=== PATIENT | male | born 1955 | race Caucasian/White ===

== ENCOUNTER 2017-06-08 18:59 | Emergency (ER) | payer OTHER ==
[~2017-06-08] VITALS: Ht 182.9 cm; Wt 82.0 kg
[2017-06-08 19:25] VITALS: BP 120/86; PULSE 80; RESP 16; O2SAT 96
[2017-06-08 21:40] LABS: ANION GAP 14 MEQ/L (5-15); AST (GOT) 63 U/L (15-37); BICARBONATE 21.4 MEQ/L (21.0-32.0); BLOOD UREA NITROGEN 14 MG/DL (7-18); CHLORIDE 106 MEQ/L (98-107); GLOMERULAR FILTRATION RATE 86 ML/MIN (>89); POTASSIUM 3.9 MEQ/L (3.5-5.1); SODIUM (NA) 141 MEQ/L (136-145)
[2017-06-08 21:46] LABS: ALKALINE PHOSPHATASE 67 U/L (45-117); ALT (GPT) 62 U/L (12-78); TOTAL BILIRUBIN ADULT 0.3 MG/DL (0.2-1.0)
[2017-06-08 21:51] LABS: ALCOHOL 304 MG/DL (0-5)
== END 2017-06-08 20:45 | disposition left against medical advice (07) ==
LOC: NEDAMB 18:59
DX: Z04.9 Encounter for examination and observation for unspecified reason (principal); F10.24 Alcohol dependence with alcohol-induced mood disorder
CPT/HCPCS: 80053; 80307; 99283

== ENCOUNTER 2017-06-08 23:04 | Emergency (ER) | payer OTHER ==
[~2017-06-08] VITALS: Ht 172.7 cm; Wt 75.0 kg
[2017-06-09 06:20] VITALS: BP 141/85; PULSE 72; RESP 17; O2SAT 96
--- NOTE | 2017-06-09 06:48 | PD ---
HPI Chief Complaint: Psychiatric Symptoms Time Seen by Provider: 06:07 Travel History International Travel<30 days: No Contact w/Intl Traveler<30days: No Traveled to known affect area: No History of Present Illness HPI 61-year-old white male presents to emergency department under a Hale act by PD. The patient had made suicidal statements. He has stated that he was going to take warm hot bath with a razor. Patient denies any true suicidal ideation. He states that he said this is use intoxicated. Now that he sobered up he recants this. He denies any homicidal ideation. He states that he suffered with alcohol abuse for many years as well as bipolar. He states that he had taken a cab from [place] where she lives in [facility]. He states that he hasn't driven since 2004. Patient denies any toxic ingestions. No medical complaints. PFSH Past Medical History Narrative Medical Alcoholism, bipolar Tetanus Vaccination: < 5 Years Past Surgical History Narrative Surgical Tonsils, septoplasty, right ankle surgery Social History Alcohol Use: Yes Tobacco Use: No Substance Use: No Allergies-Medications (Allergen,Severity, Reaction): Coded Allergies: No Known Allergies (Verified Allergy, Unknown, 06/08/17) Review of Systems Except as stated in HPI: all other systems reviewed are Neg Physical Exam Narrative GENERAL: Well-nourished, well-developed patient. SKIN: Warm and dry. HEAD: Normocephalic and atraumatic. EYES: No scleral icterus. No injection or drainage. ENT: No nasal drainage noted. Mucous membranes pink. Airway patent. NECK: Supple, trachea midline. Moves head freely without obvious discomfort. CARDIOVASCULAR: Regular rate and rhythm without murmurs, gallops, or rubs. RESPIRATORY: Breath sounds equal bilaterally. No accessory muscle use. GASTROINTESTINAL: Abdomen soft, non-tender, nondistended. EXTREMITIES: No cyanosis or edema. BACK: Nontender without obvious deformity. No CVA tenderness. NEURO: Patient is alert and oriented. no sensorimotor deficits. Nonfocal. Normal speech. PSYCH: No delusions. No auditory or visual hallucinations. Data Data Last Documented VS Vital Signs Date Time Temp Pulse Resp B/P (MAP) Pulse Ox O2 Delivery O2 Flow Rate FiO2 06/09/17 06:20 72 17 141/85 (103) 96 Orders Orders Psych Screen (06/09/17 04:52) Diet Regular Basic (06/09/17 Breakfast) Complete Blood Count With Diff (06/09/17 06:07) Comprehensive Metabolic Panel (06/09/17 06:07) Drug Screen, Random Urine (06/09/17 06:07) Alcohol (Ethanol) (06/09/17 06:07) Labs Laboratory Tests Test 06/09/17 06:26 [facility] Medical Decision Making Medical Screen Exam Complete: Yes Emergency Medical Condition: Yes Medical Record Reviewed: Yes Differential Diagnosis MDM: High Differential diagnoses: Schizophrenia, schizoaffective disorder, bipolar, anxiety, depression, adjustment reaction, mood disorder NOS, ODD, depressive disorder NOS, dementia, dementia with agitation, psychosis NOS, substance induced mood disorder, intermittent explosive disorder, Asperger syndrome, infection,electrolyte abnormality, malingering. Narrative Course Mental health screening discussed with the patient. Psychiatric screen ordered. The patient's been medically clear. This is medical clearance for psychiatric admission, alcohol induced mood disorder Diagnosis Primary Impression: Medical clearance for psychiatric admission Additional Impression: Alcohol-induced mood disorder Condition: Stable Sam Thorne Jun 09, 2017 06:48
--- NOTE | 2017-06-09 14:32 | PD ---
History of Present Illness Chief Complaint: Psychiatric Symptoms Time Seen by Provider: 14:30 Travel History International Travel<30 Days: No Contact w/Intl Traveler<30days: No Known affected area: No Legal Status Legal Status: Hale Act Hale Act Signed By: David Ryan History of Present Illness: 61-year-old male presented under a Hale act by [facility] [employer] for making suicidal statements. Patient was initially acted for alcoholism but then fled [place] prior to being evaluated. He was taken to the [facility] correction and made statements about killing himself. At this time, he denies any suicidal or homicidal ideation, plan or intent. He does use alcohol and describes himself as a multiyear alcoholic. He is verbally bartolo for safety and he is competent to do so. He shows no cognitive impairments and no psychotic symptoms. [facility] Past Medical History Medical History: Denies Significant Hx Tetanus Vaccination: < 5 Years Psychiatric History Psychiatric History Hx Psychiatric Treatment: HX OF BIPOLAR. Patient shows no significant objective clinical signs of bipolar disorder at this time. Patient appears very much to be a alcoholic. History of Inpatient Treatment: Yes Guns or firearms in home: No Social History Hx Alcohol Use: Yes Hx Tobacco Use: No Hx Substance Use: Yes Substance Use Type: Alcohol Other Substances Used: PATIENT BINGE DRINKS X 3-5 DAYS AT A STRETCH Hx of Substance Use Treatment: No Allergies-Medications (Allergen,Severity, Reaction): Coded Allergies: No Known Allergies (Verified Allergy, Unknown, 06/08/17) Review of Systems Except as stated in HPI: all other systems reviewed are Neg Exam Alert: Yes Arnold: Person, Place, Date, Situation Mood: Calm Affect: Appropriate Speech: Clear, Logical Eye Contact: Normal Memory Intact: Immediate, Recent, Remote Insight/Judgement Adequate MDM Medical Decision Making Medical Record Reviewed: Yes Assessment/Plan Patient interviewed at bedside and medical record reviewed. Case discussed with nurse Ribeiro. Patient being released as he does not meet criteria for Hale acted this time. He also does not meet criteria for psychiatric hospitalization. This physician feels the patient is alcoholic. Patient not interested in treatment at [facility] although he was referred for same. He is verbally bartolo for safety and he is competent to do so. Orders Orders Psych Screen (06/09/17 04:52) Diet Regular Basic (06/09/17 Breakfast) Complete Blood Count With Diff (06/09/17 06:07) Comprehensive Metabolic Panel (06/09/17 06:07) Drug Screen, Random Urine (06/09/17 06:07) Alcohol (Ethanol) (06/09/17 06:07) Diet Regular Basic (06/09/17 Lunch) Diet Regular Basic (06/09/17 Dinner) Results Vital Signs Date Time Temp Pulse Resp B/P (MAP) Pulse Ox O2 Delivery O2 Flow Rate FiO2 06/09/17 06:20 72 17 141/85 (103) 96 Laboratory Tests Test 06/09/17 06:26 Urine Opiates Screen NEG Urine Barbiturates Screen NEG Urine Amphetamines Screen NEG Urine Benzodiazepines Screen NEG Urine Cocaine Screen NEG Urine Cannabinoids Screen NEG Diagnosis Primary Impression: Alcohol abuse Condition: Stable Jose Louie MD Jun 09, 2017 14:32
[2017-06-09 14:33] VITALS: BP 134/71; PULSE 93; RESP 18
--- NOTE | 2017-06-09 14:38 | PD ---
Physical Exam Date Seen by Provider: Jun 09, 2017 Time Seen by Provider: 14:37 Narrative patient seen by Dr. Louie and cleared for discharge. patient had no complaints when I saw them. No suicide or homicide ideation. discharge orders placed. Data Data Last Documented VS Vital Signs Date Time Temp Pulse Resp B/P (MAP) Pulse Ox O2 Delivery O2 Flow Rate FiO2 06/09/17 14:33 93 18 134/71 (92) 06/09/17 06:20 96 Orders Orders Psych Screen (06/09/17 04:52) Diet Regular Basic (06/09/17 Breakfast) Complete Blood Count With Diff (06/09/17 06:07) Comprehensive Metabolic Panel (06/09/17 06:07) Drug Screen, Random Urine (06/09/17 06:07) Alcohol (Ethanol) (06/09/17 06:07) Diet Regular Basic (06/09/17 Lunch) Diet Regular Basic (06/09/17 Dinner) Labs Laboratory Tests Test 06/09/17 06:26 Urine Opiates Screen NEG Urine Barbiturates Screen NEG Urine Amphetamines Screen NEG Urine Benzodiazepines Screen NEG Urine Cocaine Screen NEG Urine Cannabinoids Screen NEG MDM Medical Record Reviewed: Yes Supervised Visit with JADEN: No Diagnosis Primary Impression: Alcohol abuse Patient Instructions: General Instructions Disposition: 01 DISCHARGE HOME Condition: Stable Samantha Garay Jun 09, 2017 14:38
== END 2017-06-09 16:45 | disposition home or self-care (01) ==
LOC: NEPJ 23:04
DX: F10.24 Alcohol dependence with alcohol-induced mood disorder (principal)
CPT/HCPCS: 80307; 99283